=== PATIENT | male | born 1970 | race African-American/Black ===

== ENCOUNTER 2019-09-19 20:48 | Emergency (ER) | payer MEDICAID, OTHER ==
[~2019-09-19] VITALS: Ht 195.6 cm; Wt 97.5 kg
[2019-09-19 21:14] VITALS: BP 134/68
[2019-09-19 22:41] LABS: Urine Bacteria FEW /hpf (None Seen); Urine Blood Negative /uL (Negative); Urine Specific Gravity 1.024 (1.001-1.035); Urine WBC 1 /hpf (0 - 3)
== END 2019-09-19 22:00 | disposition left against medical advice (07) ==
LOC: ER 20:48
DX: R42 Dizziness and giddiness (principal); Z53.21 Procedure and treatment not carried out due to patient leaving prior to being seen by health care provider
CPT/HCPCS: 81001; 82962